=== PATIENT | male | born 1955 | race Caucasian/White ===

== ENCOUNTER → 2021-09-28 | Outpatient (CLI) | payer MEDICARE ==
--- NOTE | 2021-09-28 10:21 | RAD ---
EXAM: Chest, 2 views. HISTORY: Cigarette smoking. COMPARISON: None. FINDINGS: 2 views of the chest are obtained. There is diffuse increased interstitial opacity. There a re small pleural effusions. There is biapical pleural thickening likely due to scarring. There is sup erimposed right apical nodular opacity which may also be due to scarring or a nodule. The heart is pr ominent in size. IMPRESSION: 1. Diffuse increased interstitial opacity likely due to chronic interstitial changes. 2. Small bilateral pleural effusions with basilar atelectasis or scarring. 3. Right apical nodular opacity possibly due to adjacent pleural parenchymal scarring. In the absence of prior studies to confirm stability, CT may be useful for characterization. Electronically signed by: Miriam Bowie MD (09/28/2021 10:19 AM) [id number]
== END ==
LOC: RAD 10:07
PROVIDERS: ATTEND Family Medicine
DX: J90 Pleural effusion, not elsewhere classified (principal); F17.210 Nicotine dependence, cigarettes, uncomplicated
CPT/HCPCS: 71046

== ENCOUNTER 2021-10-02 13:50 | Emergency (ER) | payer MEDICARE ==
[~2021-10-02] VITALS: Ht 175.3 cm; Wt 82.6 kg
[2021-10-02] MEDS ORDERED: ADENOSINE 6 MG/2 ML VIAL IV ONE ×3 (14:13→14:30)
[2021-10-02] MEDS ORDERED: dilTIAZem 25 MG/5 ML VIAL IVP ONE (14:30)
[2021-10-02] MEDS ORDERED: dilTIAZem VIAL 125 MG in IV NORMAL SALINE 100ML 100 ML IV PRN (14:30)
[2021-10-02] MEDS ORDERED: IV NORMAL SALINE 100ML 100 ML ONE (14:32)
[2021-10-02 14:34] LABS: BASO # 0.1 x10^3/uL (0.0-0.2); BASO % 1 % (0-3); EOS # 0.1 x10^3/uL (0.0-0.7); EOS % 1 % (0-3); HEMATOCRIT 47.7 % (39.0-53.0); HEMOGLOBIN 15.8 g/dL (13.0-17.5); LYMPH % 15 % (24-48); MEAN CORPUSCULAR HEMOGLOBIN 33 pg (25-35); MEAN CORPUSCULAR HGB CONC 33 g/dL (31-37); MEAN CORPUSCULAR VOLUME 99 fL (79-100); MONO % 15 % (0-9); NEUT # 4.3 x10^3uL (1.8-7.7); NEUT % 67 % (31-73); PLATELET COUNT 137 x10^3/uL (140-400); RED BLOOD COUNT 4.84 x10^6/uL (4.30-5.70); RED CELL DISTRIBUTION WIDTH 14.3 % (11.5-14.5); WHITE BLOOD COUNT 6.4 x10^3/uL (4.0-11.0)
--- NOTE | 2021-10-02 14:36 | PHYS DOC ---
Past History Past Medical History: Cancer, Other Additional Past Medical Histor: LYMPHOMA (MEG OAKES APRN) Past Surgical History: Other Additional Past Surgical Histo: LYMPHOMA REMOVAL, HERNIA (MEG OAKES APRN) Smoking: Greater than 1 pack/day Alcohol Use: Heavy Drug Use: Marijuana (MEG OAKES APRN) General Adult EDM: Chief Complaint: SHORTNESS OF BREATH HPI: HPI: Patient is a 66-year-old male that presents today with nonproductive cough and swelling of his ankles and feet. Patient states that 2 weeks ago he started not feeling right started having this nonproductive cough, waking up in the middle of the night feeling short of air and being unable to lie flat. Patient went and saw his primary care physician 3 days ago and had a chest x-ray done he states he does not have those results as of yet, but he presents today because he is just not feeling well and he states that he was in the mirror looking at himself and he saw his heartbeat in the veins of his neck and he was concerned. Patient denies chest pain, he does state that he has shortness of air at night, and he has had swelling of his feet over the last 2 weeks, and he has a nonproductive cough. Patient states he does smoke he does drink on a daily basis, and does use marijuana on occasion. (MEG OAKES APRN) Review of Systems: Review of Systems: Constitutional: Denies fever or chills Eyes: Denies change in visual acuity HENT: Denies nasal congestion or sore throat Respiratory: Denies cough or shortness of breath Cardiovascular: Denies chest pain or edema GI: Denies abdominal pain, nausea, vomiting, bloody stools or diarrhea : Denies dysuria Musculoskeletal: Denies back pain or joint pain Integument: Denies rash Neurologic: Denies headache, focal weakness or sensory changes Endocrine: Denies polyuria or polydipsia Lymphatic: Denies swollen glands Psychiatric: Denies depression or anxiety (MEG OAKES APRN) Current Medications: Current Meds: Current Medications Medications (Trade) Dose Ordered Sig/Emily Route PRN Reason Start Time Stop Time Status Last Admin Dose Admin Adenosine (Adenocard) 6 mg 1X ONCE IV 10/02/21 14:15 10/02/21 14:42 DC 10/02/21 14:19 Adenosine (Adenocard) 12 mg 1X ONCE IV 10/02/21 14:30 10/02/21 14:42 DC 10/02/21 14:21 Diltiazem HCl (Cardizem Iv Push) 20 mg 1X ONCE IVP 10/02/21 14:30 10/02/21 14:42 DC 10/02/21 14:42 Diltiazem HCl 125 mg/Sodium Chloride 125 ml @ 5 mls/hr CONT PRN IV PER PROTOCOL 10/02/21 14:30 10/02/21 14:48 Current Medications Medications (Trade) Dose Ordered Sig/Emily Start Time Stop Time Status Last Admin Dose Admin Adenosine (Adenocard) 12 mg 1X ONCE 10/02/21 14:30 10/02/21 14:31 UNV Diltiazem HCl (Cardizem Iv Push) 20 mg 1X ONCE 10/02/21 14:30 10/02/21 14:31 UNV Diltiazem HCl (Cardizem) 125 mg STK-MED ONCE 10/02/21 14:32 10/02/21 14:32 DC Diltiazem HCl 125 mg/Sodium Chloride 125 ml @ 5 mls/hr CONT PRN 10/02/21 14:30 UNV Sodium Chloride 100 ml @ As Directed STK-MED ONCE 10/02/21 14:32 10/02/21 14:32 DC (MEG OAKES APRN) Physical Exam: PE: Constitutional: Well developed, well nourished, mild distress, non-toxic appearance. [] HENT: Normocephalic, atraumatic, bilateral external ears normal, oropharynx moist, no oral exudates, nose normal. [] Eyes: PERRLA, EOMI, conjunctiva normal, no discharge. [] Neck: Normal range of motion, no tenderness, supple, no stridor, JVD noted Cardiovascular:Heart rate irregular at a rate of 170, no murmurs Lungs & Thorax: Bilateral breath sounds crackles in the bases Abdomen: Bowel sounds normal, soft, no tenderness, no masses, no pulsatile masses. [] Skin: Warm, dry, no erythema, no rash. [] Back: No tenderness, no CVA tenderness. [] Extremities: No tenderness, no cyanosis, no clubbing, ROM intact, 2+ edema noted in bilateral extremities going past the knees, bilateral pedal pulses are 2+, radial pulses 2+ Neurologic: Alert and oriented X 3, normal motor function, normal sensory function, no focal deficits noted. [] Psychologic: Affect normal, judgement normal, mood normal. [] (MEG OAKES APRN) Current Patient Data: Labs: Laboratory Tests Test 10/02/21 14:10 10/02/21 14:39 10/02/21 14:55 White Blood Count 6.4 x10^3/uL Red Blood Count 4.84 x10^6/uL Hemoglobin 15.8 g/dL Hematocrit 47.7 % Mean Corpuscular Volume 99 fL Mean Corpuscular Hemoglobin 33 pg Mean Corpuscular Hemoglobin Concent 33 g/dL Red Cell Distribution Width 14.3 % Platelet Count 137 x10^3/uL Neutrophils (%) (Auto) 67 % Lymphocytes (%) (Auto) 15 % Monocytes (%) (Auto) 15 % Eosinophils (%) (Auto) 1 % Basophils (%) (Auto) 1 % Neutrophils # (Auto) 4.3 x10^3uL Lymphocytes # (Auto) 1.0 x10^3/uL Monocytes # (Auto) 1.0 x10^3/uL Eosinophils # (Auto) 0.1 x10^3/uL Basophils # (Auto) 0.1 x10^3/uL Sodium Level 143 mmol/L Potassium Level 3.5 mmol/L Chloride Level 106 mmol/L Carbon Dioxide Level 22 mmol/L Anion Gap 15 Blood Urea Nitrogen 9 mg/dL Creatinine 0.8 mg/dL Estimated GFR (Cockcroft-Gault) 97.0 BUN/Creatinine Ratio 11 Glucose Level 121 mg/dL Calcium Level 8.4 mg/dL Total Bilirubin 1.0 mg/dL Aspartate Amino Transf (AST/SGOT) 64 U/L Alanine Aminotransferase (ALT/SGPT) 103 U/L Alkaline Phosphatase 92 U/L Troponin I High Sensitivity 22 ng/L RI-Crq-[id number]-Type Natriuretic Peptide 3331 pg/mL Total Protein 6.6 g/dL Albumin 3.8 g/dL Albumin/Globulin Ratio 1.4 Prothrombin Time 10.7 SEC Prothromb Time International Ratio 1.0 Activated Partial Thromboplast Time 24 SEC Lactic Acid Level 2.4 mmol/L Magnesium Level 1.8 mg/dL Current Medications Medications (Trade) Dose Ordered Sig/Emily Route PRN Reason Start Time Stop Time Status Last Admin Dose Admin Adenosine (Adenocard) 6 mg STK-MED ONCE IV 10/02/21 14:13 10/02/21 14:13 DC Adenosine (Adenocard) 6 mg 1X ONCE IV 10/02/21 14:15 10/02/21 14:42 DC 10/02/21 14:19 Adenosine (Adenocard) 12 mg 1X ONCE IV 10/02/21 14:30 10/02/21 14:42 DC 10/02/21 14:21 Diltiazem HCl (Cardizem Iv Push) 20 mg 1X ONCE IVP 10/02/21 14:30 10/02/21 14:42 DC 10/02/21 14:42 Diltiazem HCl 125 mg/Sodium Chloride 125 ml @ 5 mls/hr CONT PRN IV PER PROTOCOL 10/02/21 14:30 10/02/21 14:48 Sodium Chloride 100 ml @ As Directed STK-MED ONCE .ROUTE 10/02/21 14:32 10/02/21 14:32 DC Diltiazem HCl (Cardizem) 125 mg STK-MED ONCE IV 10/02/21 14:32 10/02/21 14:32 DC Furosemide (Lasix) 40 mg 1X ONCE IVP 10/02/21 16:00 10/02/21 16:03 DC Metoprolol Tartrate (Lopressor Vial) 5 mg 1X ONCE IV 10/02/21 16:00 10/02/21 16:03 DC Enoxaparin Sodium (Lovenox 80mg Syringe) 80 mg 1X ONCE SQ 10/02/21 16:00 10/02/21 16:03 DC Vital Signs: Vital Signs Date Time Temp Pulse Resp B/P (MAP) Pulse Ox O2 Delivery O2 Flow Rate FiO2 10/02/21 14:42 162 143/72 10/02/21 13:50 160 22 136/103 (114) 95 Room Air (MEG OAKES FIRST AID OFFICER) EKG: EKG: EKG shows an irregular rhythm QTC of [address] Noyola [] (MEG OAKES FIRST AID OFFICER) Radiology/Procedures: Radiology/Procedures: REASON: chest pain VTACH PROCEDURE: CHEST AP ONLY AP chest. HISTORY: Chest pain, V. tach AP view was taken of the chest. There is a skin fold on the left. There is atelectasis or infiltrate in the medial right lung base. Lungs are otherwise free of infiltrates. There is no effusion. IMPRESSION: 1. Right base atelectasis or infiltrate. Electronically signed by: Dioni Brandon MD (10/02/2021 2:40 PM) [id number] [] (MEG OAKES APRN) Heart Score: C/O Chest Pain: N/A Risk Factors: Risk Factors: DM, Current or recent (<one month) smoker, HTN, HLP, family history of CAD, obesity. Risk Scores: Score 0 - 3: 2.5% MACE over next 6 weeks - Discharge Home Score 4 - 6: 20.3% MACE over next 6 weeks - Admit for Clinical Observation Score 7 - 10: 72.7% MACE over next 6 weeks - Early Invasive Strategies (MEG OAKES APRN) Course & Med Decision Making: Course & Med Decision Making Pertinent Labs and Imaging studies reviewed. (See chart for details) 1405 vagal maneuvers were attempted to slow the heart rate down, adenosine 6 mg and adenosine 12 mg were both given with no slow in the rhythm. Current blood pressure is 146/83 patient continues to be alert and orientated x3, will bolus with Cardizem and start a drip. [address] Torres about admitting patient here to [facility] he states that due to the patient being on a titratable drip the patient will be need to be transferred to [facility] [address] Forman the hospitalist at [facility] he is agreeable to accepting this patient in a transfer to [place]. Call made to cardiology 1550 Kesha MIKE from the cardiology service she has made recommendations to place the patient on Lovenox weight-based, give the patient Lasix 40 mg IV and give the patient metoprolol 5 mg IV as well. She was informed the patient will be transferred to [facility] as soon as a bed becomes available. 1730 heart rate fluctuates between 90s to 120s, rate is atrial fib multiple PACs, patient and family informed of the plan of care that the patient will be transferred to [facility] for further evaluation. [address] Li it was decided a CTA of the chest is in order patient saturations are 90 to 92%. 1845 radiology called stating the patient has a chronic right lower lobe nonocclusive PE with bilateral pleural effusions patient also has some atelectasis and adenopathies. Dr. Forman was paged. (MEG OAKES APRN) Course & Med Decision Making I was the Attending physician on the above date of service of this patient. This patient was evaluated, examined, treated, and dispositioned from the emergency department by the mid-level practitioner with assistance by myself. I repeated aspects of history and physical exam and was at bedside during medical cardioversion. I help to guide treatment plan with recommendations to contact cardiology services for further recommendations. I ultimately agreed to plan of care as stated for hospital transfer Critical Care Time This patient required critical care. Due to the fact that the patient required a significant amount of one on one physician - patient contact time, ordering and review of studies, arranging urgent treatment with development of a management plan, evaluation of patients response to treatment with frequent reassessments, and discussions with other providers this patient required 35 minutes of cr itical care time. Critical care time was indicated due to the inherent instability and/or potential for instability in this patient. The critical care time that is allocated to this patient is above and beyond any time spent on any other billable procedures performed on this patient. Electronically signed, Fei Dennis DO (FEI DENNIS DO) Marco Disclaimer: Marco Disclaimer: This electronic medical record was generated, in whole or in part, using a voice recognition dictation system. (MEG OAKES APRN) Departure Departure: Impression: Primary Impression: Atrial fibrillation with RVR Disposition: 02 SHORT TERM HOSPITAL Condition: GUARDED Referrals: CÉSAR MARCELO MD (PCP) MEG OAKES APRN Oct 02, 2021 14:36 FEI DENNIS DO Oct 04, 2021 20:05
[2021-10-02 14:39] LABS: CALCIUM 8.4 mg/dL (8.5-10.1); CREATININE 0.8 mg/dL (0.7-1.3); POTASSIUM 3.5 mmol/L (3.5-5.1)
--- NOTE | 2021-10-02 14:42 | RAD ---
AP chest. HISTORY: Chest pain, V. tach AP view was taken of the chest. There is a skin fold on the left. There is atelectasis or infiltrate in the medial right lung base. Lungs are otherwise free of infiltrates. There is no effusion. IMPRESSION: 1. Right base atelectasis or infiltrate. Electronically signed by: Dioni Brandon MD (10/02/2021 2:40 PM) [id number]
[2021-10-02 14:49] LABS: ALBUMIN 3.8 g/dL (3.4-5.0); ALBUMIN/GLOBULIN RATIO 1.4 (1.0-1.7); TOTAL PROTEIN 6.6 g/dL (6.4-8.2)
--- NOTE | 2021-10-02 14:54 | EKG ---
[address] [address] Test Date: 2021-10-02 Test Time: 14:09:18 Pat Name: ANGELA CARRION Department: Room: Gender: M Water Inspector: : [id number] Requested By: MEG OAKES Order Number: [id number] Reading MD: Conrad Yoo Measurements Intervals Wall Rate: 173 P: 180 MA: 72 QRS: -9 QRSD: 102 T: 170 QT: 266 QTc: 459 Interpretive Statements SINUS TACHYCARDIA COMPLEX(ES) WITH ABERRANT INTRAVENTRICULAR CONDUCTION NON SPECIFIC ST-T WAVE CHANGES Electronically Signed On 10-04-2021 14:10:32 JIG INSPECTOR by Conrad Yoo
[2021-10-02] MEDS ORDERED: METOPROLOL TARTRATE 5 MG/5 ML VIAL. IV ONE (16:00)
[2021-10-02] MEDS ORDERED: ENOXAPARIN ** NOTE DOSE ** SYRINGE SQ ONE (16:00)
[2021-10-02] MEDS ORDERED: FUROSEMIDE 40 MG/4 ML VIAL IVP ONE (16:00)
[2021-10-02 17:25] LABS: BARBITURATES NEG (NEG); BENZODIAZEPINES NEG (NEG); CANNABINOIDS POS (NEG); COCAINE NEG (NEG); METHADONE NEG (NEG); OPIATES NEG (NEG); PHENCYCLIDINE NEG (NEG)
[2021-10-02 17:30] LABS: BACTERIA,URINE 0 /HPF (0-FEW); BILIRUBIN,URINE NEG (NEG); CLARITY,URINE CLEAR; COLOR,URINE YELLOW; GLUCOSE,URINE NEG (NEG); NITRITE,URINE NEG (NEG); RBC,URINE 0 /HPF (0-2); WBC,URINE OCC /HPF (0-4)
[2021-10-02 17:31] LABS: HYALINE CASTS, URINE FEW /HPF; SQUAMOUS EPITHELIAL CELL,UR FEW /LPF
[2021-10-02 17:32] LABS: AMPHETAMINE/METHAMPHETAMINE NEG (NEG)
[2021-10-02] MEDS ORDERED: IOHEXOL 350 MG/ML 100 ML VIAL. IV ONE (18:30)
--- NOTE | 2021-10-02 18:52 | RAD ---
CT angiography chest with contrast PQRS statement: CT scans at this facility use dose reduction including either automated exposure cont rol, iterative reconstructions, and /or weight based radiation dosing via mA and kV modification when appropriate to reduce radiation dose to as low as reasonably achievable. Contrast: 100 mL Isovue-370 intravenous contrast. 3-D MIP reconstructions of the arteries were acquir ed. HISTORY: Chest pain, shortness of breath, leg swelling, history of lymphoma. COMPARISON: No priors FINDINGS: T11 vertebral body 1 cm round lytic bone lesion is indeterminate, internal density of 25 un its. Thoracic degenerative disc disease. Left coronary calcified plaque. 2 cm left hepatic lobe cyst. There is mild right upper quadrant perihepatic free fluid. Left perinephric edema. Heart size upper limits of normal. Esophagus is normal. There is a right lower lobe nonocclusive linear filling defect of the common trunk supplying the basilar pulmonary arteries extending into the anterior basilar art erial branch best demonstrated axial images 80-90 and coronal images 50-53. There is no occlusive pul monary artery embolus of the lobe arterial branches and there is no pulmonary artery embolus of the m ain, right or left pulmonary arteries. No evidence of right heart chamber enlargement or flattening o f the ventricular septum to suggest right heart strain. There is enlarged left axillary, left supracl avicular and mediastinal adenopathy the largest lymph node at the upper recess measuring 2 cm. Mild l eft and moderate right pleural effusions. Mild passive atelectasis and volume loss of the lower lobes dependently from the pleural effusions. There is paraseptal pulmonary emphysema. There is asymmetric right apical bullous emphysema underlying this emphysema there is a scarlike linear plantar density on coronal image 55 and axial image 22 measuring 1 cm craniocaudal thickness, 3 cm AP by 3 cm transve rse. 3 mm solid nodule left lower lobe image 114. 4 mm fissural lymph node or nodule along the minor fissure. IMPRESSION: 1. Linear nonocclusive basilar right lower lobe pulmonary artery embolus, suspected to be a chronic e mbolus. No occlusive or large pulmonary artery emboli. 2. Moderate right and mild left pleural effusions with mild passive atelectasis and volume loss of th e dependent lower lobes. 3. Adenopathy in the mediastinum, left lower neck and left axilla presumably representing the patient 's lymphoma. 4. Paraseptal emphysema of the upper lobes. There is asymmetric right apical bullous emphysema, under lying this emphysema there is a linear triangular parenchymal density measuring 3 x 3 x 1 cm this cou ld represent asymmetric scarring versus a scarlike lung adenocarcinoma. Separate there are small arias d nodules at the lung bases measuring up to 4 mm in size. Consider further assessment with PET imagin g versus needle biopsy, secondarily [address] chest follow-up could be considered, for the right api edgar lesion. 5. 1 cm lytic lesion of the T11 thoracic vertebra is indeterminate. 6. Mild free fluid right upper quadrant abdomen. FOR INTERNAL CODING PURPOSES Critical result: Findings discussed with MEG OAKES APRN at 10/02/2021 6:44 PM. RESULT CODE: (C) Electronically signed by: Arpan Mcneill MD (10/02/2021 6:50 PM) [facility]
[2021-10-02 18:53] LABS: INFLUENZA A PATIENT NEGATIVE (NEGATIVE); INFLUENZA B PATIENT NEGATIVE (NEGATIVE)
[2021-10-02 19:38] VITALS: BP 109/78
== END 2021-10-02 19:47 | disposition short-term general hospital (02) ==
LOC: ER 13:50
DX: I48.20 Chronic atrial fibrillation, unspecified (principal); F10.20 Alcohol dependence, uncomplicated; Z20.822 Contact with and (suspected) exposure to COVID-19; Z87.891 Personal history of nicotine dependence; Y90.0 Blood alcohol level of less than 20 mg/100 ml
CPT/HCPCS: 36415; 71045; 71275; 80053; 80307; 81001; 83605; 83735; 83880; 84443; 84484; 85025; 85610; 85730; 87040; 87428; 93005; 96365; 96366; 96372; 96375; 96376; 99285; C9803; J0153; J1650; J1940; J3490; Q9967; U0003